=== PATIENT | female | born 1980 | race Caucasian/White ===

== ENCOUNTER → 2023-12-05 17:01 | Outpatient (REF) | payer OTHER, SELFPAY | LOC: WDC 17:01 | PROVIDERS: ATTENDING PHYSICIAN Family Medicine | DX: E04.2 Nontoxic multinodular goiter (principal); Z12.31 Encounter for screening mammogram for malignant neoplasm of breast | CPT/HCPCS: 76536; 77063; 77067 ==

== ENCOUNTER → 2024-12-09 12:17 | Outpatient (REF) | payer OTHER, SELFPAY | LOC: WDC 12:17 | PROVIDERS: ATTENDING PHYSICIAN Family Medicine | DX: Z12.31 Encounter for screening mammogram for malignant neoplasm of breast (principal) | CPT/HCPCS: 77063; 77067 ==